=== PATIENT | male | born 1980 | race American Indian/Alaskan Native ===

== ENCOUNTER 2018-12-09 00:52 | Inpatient (IN) | payer OTHER ==
[2018-12-09 01:49] LABS: Basophils % (Auto) 0.8 % (0.0-1.8); Eosinophils # (Auto) 0.2 K/mm3 (0.0-0.4); Eosinophils % (Auto) 2.8 % (0.0-4.3); Hematocrit 40.2 % (35.5-45.6); Hemoglobin 13.5 gm/dl (11.8-15.2); Lymphocytes # (Auto) 2.9 K/mm3 (1.2-5.4); Lymphocytes % (Auto) 48.8 % (13.4-35.0); Mean Corpuscular HGB Conc 34 % (32-34); Mean Corpuscular Volume 100 fl (84-94); Monocytes # (Auto) 0.3 K/mm3 (0.0-0.8); Monocytes % (Auto) 4.4 % (0.0-7.3); Platelet Count 244 K/mm3 (140-440); Red Blood Count 4.02 M/mm3 (3.65-5.03); Red Cell Distribution Width 13.6 % (13.2-15.2)
[2018-12-09 02:12] LABS: BUN/Creatinine Ratio 11; Blood Urea Nitrogen 9 mg/dL (9-20); Calcium 8.8 mg/dL (8.4-10.2); Hemolysis Index 18
[2018-12-09] MEDS ORDERED: LASIX IV ONE (06:19)
[2018-12-09 07:03] LABS: INR 1.14 (0.87-1.13); Partial Thromboplastin Time 29.3 Sec. (24.2-36.6)
[2018-12-09 07:10] LABS: Creatine Kinase MB 1.3 ng/mL (0.0-4.0)
[2018-12-09 07:13] LABS: Albumin 3.5 g/dL (3.9-5); Bilirubin,Direct 0.3 mg/dL (0-0.2)
[2018-12-09 07:17] LABS: Bilirubin,Urine NEG (Negative); Blood,Urine NEG (Negative); Color,Urine Straw (Yellow); Protein,Urine <15 mg/dL mg/dL (Negative); Urobilinogen,Urine < 2.0 mg/dL (<2.0); WBC,Urine < 1.0 /HPF (0.0-6.0)
[2018-12-09 07:26] LABS: Amphetamine Screen,Urine PRESUMPTIVE NEGATIVE; Benzodiazepines Screen,Urine PRESUMPTIVE NEGATIVE; Cocaine Screen,Urine PRESUMPTIVE NEGATIVE; Methadone Screen,Urine PRESUMPTIVE NEGATIVE; Opiate Screen,Urine PRESUMPTIVE NEGATIVE
[2018-12-09 07:45] LABS: Cannabinoid Screen,Urine PRESUMPTIVE POSITIVE
--- NOTE | 2018-12-09 09:04 | XRay Report ---
PROCEDURE: XR CHEST ROUTINE 2V TECHNIQUE: Chest, 2 views HISTORY: cough and FERNANDA COMPARISON: None FINDINGS: There is mild cardiomegaly. There is vascular congestion and interstitial pulmonary edema. There is n o pleural effusion thorax. IMPRESSION: Cardiomegaly with vascular congestion and interstitial edema. This document is electronically signed by Missy Levine MD., December 09 2018 09:02:52 AM ET
--- NOTE | 2018-12-09 11:36 | Emergency Department Report ---
ED Shortness of Breath HPI - General Chief Complaint: Dyspnea/Respdistress Stated Complaint: FERNANDA/O2 DROPPING BELOW 90 Time Seen by Provider: 12/09/18 06:17 Source: patient Mode of arrival: Ambulatory Limitations: No Limitations - History of Present Illness Initial Comments: 38-year-old male states that he has been short of breath. Past few weeks. He states that 5-7 days ago he did have substernal chest pain which lasted for several hours. He did not offer this information at triage. He had screening laboratory tests and a chest x-ray obtained prior to my arrival. At no time over the past few weeks please see Medical attention. He now states that he is awakening in the middle night short of breath. He has dyspnea on exertion. He has orthopnea. He is not complaining of chest pain today or for the past several days. MD Complaint: shortness of breath -: week(s) Quality: other (no pain complaint) Improves With: nothing Worsens With: lying flat, exertion Known History Of: other (denies above) Context: other (occasional cough) Associated Symptoms: denies other symptoms Treatments Prior to Arrival: none - Related Data Home Oxygen Therapy: No Allergies Allergy/AdvReac Type Severity Reaction Status Date / Time No Known Allergies Allergy Unverified 12/09/18 01:03 ED Review of Systems ROS: Stated complaint: FERNANDA/O2 DROPPING BELOW 90 Other details as noted in HPI Constitutional: denies: chills, fever Eyes: denies: eye pain, eye discharge, vision change ENT: denies: ear pain, throat pain Respiratory: orthopnea, shortness of breath, SOB with exertion. denies: cough, wheezing Cardiovascular: chest pain (did not refer this further questioning, denied at triage). denies: palpitations Endocrine: no symptoms reported Gastrointestinal: denies: abdominal pain, nausea, diarrhea Genitourinary: denies: urgency, dysuria Musculoskeletal: denies: back pain, joint swelling, arthralgia Skin: denies: rash, lesions Neurological: denies: headache, weakness, paresthesias Psychiatric: denies: anxiety, depression Hematological/Lymphatic: denies: easy bleeding, easy bruising ED Past Medical Hx - Past Medical History Previous Medical History?: No - Surgical History Past Surgical History?: No - Family History Family history: other - Social History Smoking Status: Current Every Day Smoker Substance Use Type: None ED Physical Exam - General Limitations: No Limitations General appearance: alert, in no apparent distress - Head Head exam: Present: atraumatic, normocephalic - Eye Eye exam: Present: normal appearance. Absent: scleral icterus - ENT ENT exam: Present: mucous membranes moist - Neck Neck exam: Present: normal inspection. Absent: tenderness, meningismus - Respiratory Respiratory exam: Present: rhonchi (some mild basilar rhonchi). Absent: respiratory distress - Cardiovascular Cardiovascular Exam: Present: regular rate, normal rhythm, S4. Absent: systolic murmur, diastolic murmur, rubs, gallop - GI/Abdominal GI/Abdominal exam: Present: soft, normal bowel sounds. Absent: distended, ten derness, guarding, rebound, rigid - Rectal Rectal exam: Present: deferred - Extremities Exam Extremities exam: Present: other (pretibial edema) - Back Exam Back exam: Present: normal inspection - Neurological Exam Neurological exam: Present: alert, oriented X3, CN II-XII intact. Absent: motor sensory deficit - Psychiatric Psychiatric exam: Present: normal affect, normal mood - Skin Skin exam: Present: warm, dry, intact, normal color. Absent: rash ED Course Vital Signs 12/09/18 12/09/18 12/09/18 00:59 02:16 03:00 Temperature 98 F 98 F Pulse Rate 109 H 105 H 101 H Respiratory 22 21 21 Rate Blood Pressure 127/94 118/91 Blood Pressure 118/91 [Left] O2 Sat by Pulse 96 95 93 Oximetry 12/09/18 12/09/18 12/09/18 05:00 06:00 10:10 Temperature Pulse Rate 102 H 104 H 87 Respiratory 22 19 18 Rate Blood Pressure 136/103 115/86 Blood Pressure 121/91 [Left] O2 Sat by Pulse 94 97 98 Oximetry - Reevaluation(s) Reevaluation #1: Patient is found to be in no distress. His pulse oximetry was 94% on room air. He is placed on supplemental O2. His chest x-ray was consistent with cardiogenic pulmonary edema. He was given Lasix. He remained entirely stable. He is admitted to the hospitalist service for care and evaluation and I presume cardiology workup and consultation 12/09/18 12:44 ED Medical Decision Making - Lab Data Result diagrams: 12/09/18 01:26 12/09/18 01:30 Laboratory Results - last 24 hr 12/09/18 12/09/18 12/09/18 01:26 01:30 06:41 WBC 6.0 RBC 4.02 Hgb 13.5 Hct 40.2 MCV 100 H MCH 34 H MCHC 34 RDW 13.6 Plt Count 244 Lymph % (Auto) 48.8 H [place] % (Auto) 4.4 Eos % (Auto) 2.8 Baso % (Auto) 0.8 Lymph # 2.9 [place] # 0.3 Eos # 0.2 Baso # 0.0 Seg Neutrophils % 43.2 Seg Neutrophils # 2.6 PT INR APTT Sodium 142 Potassium 4.1 Chloride 107.3 H Carbon Dioxide 22 Anion Gap 17 BUN 9 Creatinine 0.8 Estimated GFR > 60 BUN/Creatinine Ratio 11 Glucose 86 Calcium 8.8 Magnesium Total Bilirubin Direct Bilirubin Indirect Bilirubin AST ALT Alkaline Phosphatase Total Creatine Kinase 119 CK-MB (CK-2) 1.3 CK-MB (CK-2) Rel Index 1.0 NT-Pro-B Natriuret Pep Total Protein Albumin Albumin/Globulin Ratio Urine Color Urine Turbidity Urine pH Ur Specific [place] Urine Protein Urine Glucose (UA) Urine Ketones Urine Blood Urine Nitrite Urine Bilirubin Urine Urobilinogen Ur Leukocyte Esterase Urine WBC (Auto) Urine RBC (Auto) U Epithel Cells (Auto) Urine Opiates Screen Urine Methadone Screen Ur Barbiturates Screen Ur Phencyclidine Scrn Ur Amphetamines Screen U Benzodiazepines Scrn Urine Cocaine Screen U Marijuana (THC) Screen Drugs of Abuse Note 12/09/18 12/09/18 12/09/18 06:41 06:41 06:57 WBC RBC Hgb Hct MCV MCH MCHC RDW Plt Count Lymph % (Auto) [place] % (Auto) Eos % (Auto) Baso % (Auto) Lymph # [place] # Eos # Baso # Seg Neutrophils % Seg Neutrophils # PT 14.3 INR 1.14 H APTT 29.3 Sodium Potassium Chloride Carbon Dioxide Anion Gap BUN Creatinine Estimated GFR BUN/Creatinine Ratio Glucose Calcium Magnesium 1.70 Total Bilirubin 1.10 Direct Bilirubin 0.3 H Indirect Bilirubin 0.8 AST 55 H ALT 34 Alkaline Phosphatase 90 Total Creatine Kinase CK-MB (CK-2) CK-MB (CK-2) Rel Index NT-Pro-B Natriuret Pep 1973 H Total Protein 6.2 L Albumin 3.5 L Albumin/Globulin Ratio 1.3 Urine Color Urine Turbidity Urine pH Ur Specific [place] Urine Protein Urine Glucose (UA) Urine Ketones Urine Blood Urine Nitrite Urine Bilirubin Urine Urobilinogen Ur Leukocyte Esterase Urine WBC (Auto) Urine RBC (Auto) U Epithel Cells (Auto) Urine Opiates Screen Presumptive negative Urine Methadone Screen Presumptive negative Ur Barbiturates Screen Presumptive negative Ur Phencyclidine Scrn Presumptive negative Ur Amphetamines Screen Presumptive negative U Benzodiazepines Scrn Presumptive negative Urine Cocaine Screen Presumptive negative U Marijuana (THC) Screen Presumptive positive Drugs of Abuse Note Disclamer 12/09/18 06:57 WBC RBC Hgb Hct MCV MCH MCHC RDW Plt Count Lymph % (Auto) [place] % (Auto) Eos % (Auto) Baso % (Auto) Lymph # [place] # Eos # Baso # Seg Neutrophils % Seg Neutrophils # PT INR APTT Sodium Potassium Chloride Carbon Dioxide Anion Gap BUN Creatinine Estimated GFR BUN/Creatinine Ratio Glucose Calcium Magnesium Total Bilirubin Direct Bilirubin Indirect Bilirubin AST ALT Alkaline Phosphatase Total Creatine Kinase CK-MB (CK-2) CK-MB (CK-2) Rel Index NT-Pro-B Natriuret Pep Total Protein Albumin Albumin/Globulin Ratio Urine Color Straw Urine Turbidity Clear Urine pH 6.0 Ur Specific [place] 1.009 Urine Protein <15 mg/dl Urine Glucose (UA) Neg Urine Ketones Neg Urine Blood Neg Urine Nitrite Neg Urine Bilirubin Neg Urine Urobilinogen < 2.0 Ur Leukocyte Esterase Neg Urine WBC (Auto) < 1.0 Urine RBC (Auto) 1.0 U Epithel Cells (Auto) < 1.0 Urine Opiates Screen Urine Methadone Screen Ur Barbiturates Screen Ur Phencyclidine Scrn Ur Amphetamines Screen U Benzodiazepines Scrn Urine Cocaine Screen U Marijuana (THC) Screen Drugs of Abuse Note - EKG Data -: EKG Interpreted by Ar EKG shows normal: sinus rhythm, axis, intervals, QRS complexes, ST-T waves Rate: tachycardia - EKG Data Interpretation: LVH (EKG is consistent with LVH left atrial enlargement associated repolarization abnormality. Nonspecific) - Radiology Data Radiology results: report reviewed FINDINGS: There is mild cardiomegaly. There is vascular congestion and interstitial pulmonary edema. There is no pleural effusion thorax. Critical care attestation.: If time is entered above; I have spent that time in minutes in the direct care of this critically ill patient, excluding procedure time. ED Disposition Clinical Impression: Pulmonary edema cardiac cause Disposition: DC-09 OP ADMIT IP TO THIS HOSP Is pt being admited?: Yes Does the pt Need Aspirin: Yes Condition: Stable Instructions: Pulmonary Edema (ED) Referrals: MIKO CLEMENTE MD [Primary Care Provider] - 3-5 Days Time of Disposition: 12:49
--- NOTE | 2018-12-09 12:32 | History and Physical Report ---
History of Present Illness Date of examination: 12/09/18 Date of admission: 12/09/18 12:29 Chief complaint: Shortness of breath History of present illness: 38-year-old male without any major past medical history presented with complaints of shortness of breath for at least last 1 month. He states that he was having worsening symptoms over the last month but initially he thought likely from allergy or common cold. but his symptom continue to get worse and then he was unable to lay flat. His friend then advised him to get checked out with physician but he he decided to wait. Last night he could not breath at all and could not sleep so he decided to come to hospital. his CXR suggestive of pulmonary condition, lab work showed elevated BNP. He is given a dose of Lasix and call for admission for further evaluation and management.. Review of System: Constitutional: no fever, no chills, no weight loss Ears, eyes, nose, mouth and throat: no nasal congestion, no nasal discharge, no sinus pressure, no vision change, no red eye. Neck: No neck pain or rigidity. Cardiovascular: No chest pain, + orthopnea, no palpitations, no leg swelling Respiratory: +shortness of breath, no cough, no congestion, no wheezing Gastrointestinal: no abdominal pain, no nausea, no vomiting Genitourinary : no dysuria, no hematuria Musculoskeletal: no joint swelling or muscle ache Integumentary: no rash, no pruritis Neurological: no parathesias, no numbness, no tingling Endocrine: no cold or heat intolerance, no polyuria or polydipsia Hematologic/Lymphatic: no easy bruising, no easy bleeding, no gland swelling Allergic/Immunologic: no urticaria, no angioedema. Past History Past Medical History: other (history of murmur) Past Surgical History: No surgical history Social history: smoking (1-2 sticks per day). denies: alcohol abuse, IV drug use Family history: diabetes, hypertension Medications and Allergies Allergies Allergy/AdvReac Type Severity Reaction Status Date / Time No Known Allergies Allergy Unverified 12/09/18 01:03 Home Medications Medication Instructions Recorded Confirmed Last Taken Type No Known Home Medications [No 12/09/18 12/09/18 Unknown History Reported Home Medications] Exam - Physical Exam Narrative exam: GENERAL: well-developed -[place] male lying on bed appeared to be in no discomfort. HEENT: Normocephalic. Atraumatic. No conjunctival congestion or icterus. Patient has moist mucous membranes. NECK: Supple. Trachea midline. CHEST/LUNGS: Few crackles auscultated bilaterally, breathing nonlabored. No wheezes or rhonchi. HEART/CARDIOVASCULAR: Regular in rate and rhythm. S1 and S2 positive. ABDOMEN: Abdomen is soft, nontender. Patient has normal bowel sounds. SKIN: There is no rash. Warm and dry. NEURO: No focal motor deficit. Follows command. MUSCULOSKELETAL: No joint effusion or tenderness. EXTRIMITY: No edema, no cyanosis or clubbing. PSYCH: Cooperative. - Constitutional Vitals: Temp Pulse Resp BP Pulse Ox 98 F 87 18 121/91 98 12/09/18 02:16 12/09/18 10:10 12/09/18 10:10 12/09/18 10:10 12/09/18 10:10 Results - Labs CBC & Chem 7: 12/09/18 01:26 12/10/18 12:43 Labs: Abnormal lab results 12/09/18 12/09/18 12/09/18 Range/Units 01:26 01:30 06:41 MCV 100 H (84-94) fl MCH 34 H (28-32) pg Lymph % (Auto) 48.8 H (13.4-35.0) % INR 1.14 H (0.87-1.13) Chloride 107.3 H (98-107) mmol/L Direct Bilirubin (0-0.2) mg/dL AST (5-40) units/L NT-Pro-B Natriuret Pep (0-450) pg/mL Total Protein (6.3-8.2) g/dL Albumin (3.9-5) g/dL 12/09/18 Range/Units 06:41 MCV (84-94) fl MCH (28-32) pg Lymph % (Auto) (13.4-35.0) % INR (0.87-1.13) Chloride (98-107) mmol/L Direct Bilirubin 0.3 H (0-0.2) mg/dL AST 55 H (5-40) units/L NT-Pro-B Natriuret Pep 1973 H (0-450) pg/mL Total Protein 6.2 L (6.3-8.2) g/dL Albumin 3.5 L (3.9-5) g/dL - Imaging and Cardiology Chest x-ray: report reviewed Assessment and Plan Acute shortness of breath - Likely from pulmonary edema underlying cause unknown - likely CHF - Continue low-dose Lasix for now, obtain d-dimer, 2-D echo - Get 1 set of troponin, monitor BP - Supportive care Substance abuse, UDS was positive for marijuana, securities counselor DVT prophylaxis, Lovenox
[2018-12-09] MEDS ORDERED: ASPIRIN PO ONE (12:49)
[2018-12-09] MEDS ORDERED: ASPIRIN ONE (13:15)
[2018-12-09] MEDS ORDERED: TYLENOL PO PRN (15:50)
[2018-12-09] MEDS ORDERED: ZOFRAN IV PRN (15:50)
[2018-12-09] MEDS: LASIX IV SCH (17:51)
[2018-12-09] MEDS: DUONEB *Not for PRN Use IH SCH (20:58)
[2018-12-09] MEDS: LOVENOX SUB-Q SCH (21:03)
[2018-12-09] MEDS: PEPCID PO SCH (21:03)
[2018-12-09] MEDS: COLACE PO SCH (21:03)
[2018-12-10] MEDS: DUONEB *Not for PRN Use IH SCH ×4 (01:47→19:39)
[2018-12-10] MEDS: LASIX IV SCH (05:18)
[2018-12-10] MEDS ORDERED: LASIX IV SCH (10:00)
--- NOTE | 2018-12-10 11:06 | Cat Scan Report ---
CTA CHEST: HISTORY: Short of breath. COMPARISON: Chest x-ray performed 12/09/18. TECHNIQUE: Helical CT in 1.25mm intervals following IV contrast. Pulmonary embolus protocol. Sagittal and coronal reformatted images. Rotational MIP images. FINDINGS: Contrast bolus is satisfactory. No pulmonary embolus is identified. Thyroid gland: Normal. Tracheobronchial tree: Normal. Esophagus: Normal. Heart: Mild cardiomegaly. Pericardium: Small pericardial effusion. Mediastinum: Normal. Lung [place]: Mild congestive changes are identified. No evidence for mass, infiltrate or interstitial lung disease. Pleural Spaces: Trace layering right pleural effusion. Musculoskeletal: Intact. IMPRESSION: No evidence for pulmonary embolus. Mild cardiomegaly with small pericardial effusion, mild vascular congestion and trace right pleural effusion. Consider mild CHF/volume overload.
[2018-12-10 13:46] LABS: BUN/Creatinine Ratio 10; Blood Urea Nitrogen 9 mg/dL (9-20); Calcium 8.7 mg/dL (8.4-10.2); Hemolysis Index 5
[2018-12-10] MEDS ORDERED: K-DUR PO ONE (15:39)
--- NOTE | 2018-12-10 15:54 | Progress Note ---
Assessment and Plan Dyspnea, Acute - Likely from pulmonary edema underlying cause unknown - likely from new onset CHF - Continue low-dose Lasix for now, negative CTa chest, 2-D echo pending - negative troponin, monitor BP - Supportive care Severe hypokalemia, likely from lasix, replete Substance abuse, UDS was positive for marijuana, primary counselor DVT prophylaxis, Lovenox Brief History: 38-year-old male without any major past medical history presented with complaints of shortness of breath for at least last 1 month. his CXR suggestive of pulmonary congestion, lab work showed elevated BNP. He was given a dose of Lasix in the ER and called for admission for further evaluation and management.. CTA negative for PE, 2d echo pending. Consulted cardiology. Subjective Date of service: 12/10/18 Interval history: Patient seen and examined c/o SOB on exertion denies chest pain Objective - Exam Narrative Exam: GENERAL: well-developed -[place] male lying on bed appeared to be in no discomfort. HEENT: Normocephalic. Atraumatic. No conjunctival congestion or icterus. Patient has moist mucous membranes. NECK: Supple. Trachea midline. CHEST/LUNGS: Few crackles auscultated bilaterally, breathing nonlabored. No wheezes or rhonchi. HEART/CARDIOVASCULAR: Regular in rate and rhythm. S1 and S2 positive. ABDOMEN: Abdomen is soft, nontender. Patient has normal bowel sounds. SKIN: There is no rash. Warm and dry. NEURO: No focal motor deficit. Follows command. MUSCULOSKELETAL: No joint effusion or tenderness. EXTRIMITY: No edema, no cyanosis or clubbing. PSYCH: Cooperative. - Constitutional Vitals: Vital Signs - 12hr 12/10/18 12/10/18 12/10/18 04:00 07:30 08:06 Temperature 97.4 F L 97.4 F L Pulse Rate 78 88 Pulse Rate [ Bilateral] Respiratory 18 18 Rate Respiratory Rate [Bilateral ] Blood Pressure 102/72 107/84 O2 Sat by Pulse 97 Oximetry 12/10/18 12/10/18 09:22 09:39 Temperature Pulse Rate Pulse Rate [ 88 75 Bilateral] Respiratory Rate Respiratory 18 18 Rate [Bilateral ] Blood Pressure O2 Sat by Pulse 100 Oximetry - Labs CBC & Chem 7: 12/09/18 01:26 12/10/18 12:43 Labs: Abnormal lab results 06/17/19 Range/Units 12:43 Potassium 2.9 L* D (3.6-5.0) mmol/L Chloride 97.8 L (98-107) mmol/L
[2018-12-10] MEDS: COLACE PO SCH ×2 (16:59→21:24)
[2018-12-10] MEDS: PEPCID PO SCH ×2 (16:59→21:23)
[2018-12-10] MEDS ORDERED: NACL 0.9% 500 ML 500 ML IV SCH (19:50)
[2018-12-10] MEDS ORDERED: NACL 0.9% 500 ML 500 ML ONE (19:52)
[2018-12-10] MEDS: KCL 10MEQ/100ML 10 MEQ/100 ML BAG IV SCH ×2 (20:05→22:14)
[2018-12-10] MEDS: LOVENOX SUB-Q SCH (21:24)
[2018-12-11] MEDS: KCL 10MEQ/100ML 10 MEQ/100 ML BAG IV SCH (00:06)
[2018-12-11] MEDS: DUONEB *Not for PRN Use IH SCH ×4 (01:53→19:25)
[2018-12-11 05:49] LABS: BUN/Creatinine Ratio 14; Blood Urea Nitrogen 11 mg/dL (9-20); Calcium 8.5 mg/dL (8.4-10.2); Hemolysis Index 3
[2018-12-11] MEDS: PERCOCET 5/325 PO PRN ×3 (09:05→21:42)
[2018-12-11] MEDS: LASIX IV SCH ×2 (09:32→10:33)
[2018-12-11] MEDS: PEPCID PO SCH ×2 (10:33→21:43)
[2018-12-11] MEDS: K-DUR PO SCH (10:33)
[2018-12-11] MEDS: COLACE PO SCH ×2 (10:34→21:43)
--- NOTE | 2018-12-11 13:08 | Consultation ---
History of Present Illness Consult date: 12/11/18 Consult reason: congestive heart failure History of present illness: This is a 38 year old male with no prior medical history and has not seen a physician in 3 years. Patient presents with shortness of breath that has progressively worsened over the last few days. He reports associated orthopnea and coughs. Patient denies chest pain, palpitations and pre-syncope. There is no lower extremity edema. Chest x-ray reports cardiomegaly with mild interstitial edema. Further evaluation with an echocardiogram revealed a 4 chamber dilated cardiomyopathy, ejection fraction 10-15%. Cardiology consultation has been requested. Past History Past Medical History: other (history of murmur) Past Surgical History: No surgical history Social history: smoking. denies: alcohol abuse, IV drug use Family history: diabetes, hypertension Medications and Allergies Allergies Allergy/AdvReac Type Severity Reaction Status Date / Time No Known Allergies Allergy Unverified 12/09/18 01:03 Home Medications Medication Instructions Recorded Confirmed Last Taken Type No Known Home Medications [No 12/09/18 12/09/18 Unknown History Reported Home Medications] Active Meds: Active Medications Acetaminophen (Tylenol) 650 mg PO Q4H PRN PRN Reason: Pain MILD(1-3)/Fever >100.5/[facility] Albuterol/Ipratropium (Duoneb *Not For Prn Use*) 1 ampul IH Q6HRT [facility] Last Admin: 12/11/18 09:09 Dose: Not Given Documented by: Docusate Sodium (Colace) 100 mg PO BID [facility] Last Admin: 12/11/18 10:34 Dose: 100 mg Documented by: Enoxaparin Sodium (Lovenox) 40 mg SUB-Q QDAY@2200 [facility] Last Admin: 12/10/18 21:24 Dose: 40 mg Documented by: Famotidine (Pepcid) 10 mg PO BID [facility] Last Admin: 12/11/18 10:33 Dose: 10 mg Documented by: Furosemide (Lasix) 40 mg IV DAILY [facility] Last Admin: 12/11/18 10:33 Dose: 40 mg Documented by: Sodium Chloride (Nacl 0.9% 500 Ml) 500 mls @ 50 mls/hr IV DIRECT [facility] Ondansetron HCl (Zofran) 4 mg IV Q8H PRN PRN Reason: N/V unrelieved by Reglan Oxycodone/Acetaminophen (Percocet 5/325) 1 tab PO Q6H PRN PRN Reason: Pain, Moderate (4-6) Potassium Chloride (K-Dur) 20 meq PO QDAY [facility] Last Admin: 12/11/18 10:33 Dose: 20 meq Documented by: Physical Examination Vital Signs Temp Pulse Resp BP Pulse Ox 98 F 109 H 22 127/94 96 12/09/18 00:59 12/09/18 00:59 12/09/18 00:59 12/09/18 00:59 12/09/18 00:59 General appearance: no acute distress HEENT: Positive: PERRL Neck: Positive: trachea midline Cardiac: Positive: Reg Rate and Rhythm Lungs: Positive: Decreased Breath Sounds Neuro: Positive: Grossly Intact Extremities: Absent: edema Results 12/09/18 01:26 12/11/18 04:43 Comprehensive Metabolic Panel 12/10/18 12/11/18 Range/Units 12:43 04:43 Sodium 142 140 (137-145) mmol/L Potassium 2.9 L* D 3.2 L (3.6-5.0) mmol/L Chloride 97.8 L 101.9 (98-107) mmol/L Carbon Dioxide 27 25 (22-30) mmol/L BUN 9 11 (9-20) mg/dL Creatinine 0.9 0.8 (0.8-1.5) mg/dL Glucose 88 104 H (75-100) mg/dL Calcium 8.7 8.5 (8.4-10.2) mg/dL
--- NOTE | 2018-12-11 17:09 | Progress Note ---
Assessment and Plan Assessment and plan: --New onset congestive heart failure;systolic dysfunction Ejection fraction 15%, continue diuretics, beta blockers, jamar inhibitors, spironolactone Input and output monitoring, fluid restriction, daily weights, low sodium diet Ischemia workup to rule out ischemic cardiomyopathy. Cardiology following, cardiology recommended pulm consult to evaluate for atypical pneumonia, chest x-ray 2 views tomorrow, Pulmonary consulted --Severe dilated cardiomyopathy;per ECHO EF 15% --Hypokalemia; replenish, follow levels Check magnesium --Substance abuse; marijuana Advised to quit recreational drug use --Ongoing tobacco use; smoking cessation advised Nicotine patch as needed --DVT prophylaxis, Lovenox Closely monitor the patient and adjust management as needed Brief History: 38-year-old male without any major past medical history presented with complaints of shortness of breath for at least last 1 month. his CXR suggestive of pulmonary congestion, lab work showed elevated BNP. He was given a dose of Lasix in the ER and called for admission for further evaluation and management.. CTA negative for PE, 2d echo EF 15%. Cardiology following History Interval history: 38-year-old male without any significant past medical history , never seen a physician , not on any medications was admitted to emergency room with worsening shortness of breath of one month duration , patient's workup is consistent with pulmonary congestion on chest x-ray and CTA chest with elevated BNP and echocardiogram revealed dilated cardiomyopathy with ejection fraction of 15% , cardiology following Patient feels slightly better today, denies chest pain Shortness of breath slightly improved Alert awake oriented 3 Vital signs noted Hospitalist Physical - Constitutional Vitals: Temp Pulse Resp BP Pulse Ox 99.1 F 99 H 16 108/70 100 12/11/18 08:30 12/11/18 10:00 12/11/18 08:30 12/11/18 08:30 12/11/18 14:32 General appearance: Present: no acute distress, well-nourished - EENT Eyes: Present: PERRL, EOM intact - Neck Neck: Present: supple, normal ROM - Respiratory Respiratory effort: normal Respiratory: bilateral: diminished, rales, negative: rhonchi, wheezing - Cardiovascular Rhythm: regular Heart Sounds: Present: S1 & S2 - Extremities Extremities: no ischemia, No edema - Abdominal General gastrointestinal: soft, non-tender, non-distended, normal bowel sounds - Integumentary Integumentary: Present: clear, warm - Psychiatric Psychiatric: appropriate mood/affect, cooperative - Neurologic Neurologic: moves all extremities Results - Labs CBC & Chem 7: 12/09/18 01:26 12/11/18 04:43 Labs: Laboratory Last Values WBC 6.0 K/mm3 (4.5-11.0) 12/09/18 01:26 RBC 4.02 M/mm3 (3.65-5.03) 12/09/18 01:26 Hgb 13.5 gm/dl (11.8-15.2) 12/09/18 01:26 Hct 40.2 % (35.5-45.6) 12/09/18 01:26 MCV 100 fl (84-94) H 12/09/18 01:26 MCH 34 pg (28-32) H 12/09/18 01:26 MCHC 34 % (32-34) 12/09/18 01:26 RDW 13.6 % (13.2-15.2) 12/09/18 01:26 Plt Count 244 K/mm3 (140-440) 12/09/18 01:26 Lymph % (Auto) 48.8 % (13.4-35.0) H 12/09/18 01:26 [place] % (Auto) 4.4 % (0.0-7.3) 12/09/18 01:26 Eos % (Auto) 2.8 % (0.0-4.3) 12/09/18 01:26 Baso % (Auto) 0.8 % (0.0-1.8) 12/09/18 01:26 Lymph # 2.9 K/mm3 (1.2-5.4) 12/09/18 01:26 [place] # 0.3 K/mm3 (0.0-0.8) 12/09/18 01:26 Eos # 0.2 K/mm3 (0.0-0.4) 12/09/18 01:26 Baso # 0.0 K/mm3 (0.0-0.1) 12/09/18 01:26 Seg Neutrophils % 43.2 % (40.0-70.0) 12/09/18 01:26 Seg Neutrophils # 2.6 K/mm3 (1.8-7.7) 12/09/18 01:26 PT 14.3 Sec. (12.2-14.9) 12/09/18 06:41 INR 1.14 (0.87-1.13) H 12/09/18 06:41 APTT 29.3 Sec. (24.2-36.6) 12/09/18 06:41 496.23 ng/mlDDU (0-234) H 12/09/18 06:41 Sodium 140 mmol/L (137-145) 12/11/18 04:43 Potassium 3.2 mmol/L (3.6-5.0) L 12/11/18 04:43 Chloride 101.9 mmol/L (98-107) 12/11/18 04:43 Carbon Dioxide 25 mmol/L (22-30) 12/11/18 04:43 16 mmol/L 12/11/18 04:43 BUN 11 mg/dL (9-20) 12/11/18 04:43 0.8 mg/dL (0.8-1.5) 12/11/18 04:43 Estimated GFR > 60 ml/min 12/11/18 04:43 14 % 12/11/18 04:43 Glucose 104 mg/dL (75-100) H 12/11/18 04:43 Calcium 8.5 mg/dL (8.4-10.2) 12/11/18 04:43 Magnesium 1.70 mg/dL (1.7-2.3) 12/09/18 06:41 1.10 mg/dL (0.1-1.2) 12/09/18 06:41 0.3 mg/dL (0-0.2) H 12/09/18 06:41 0.8 mg/dL 12/09/18 06:41 AST 55 units/L (5-40) H 12/09/18 06:41 ALT 34 units/L (7-56) 12/09/18 06:41 90 units/L (35-129) 12/09/18 06:41 119 units/L (55-170) 12/09/18 06:41 CK-MB (CK-2) 1.3 ng/mL (0.0-4.0) 12/09/18 06:41 CK-MB (CK-2) Rel Index 1.0 (0-4) 12/09/18 06:41 < 0.010 ng/mL (0.00-0.029) 12/09/18 06:41 NT-Pro-B Natriuret Pep 1973 pg/mL (0-450) H 12/09/18 06:41 6.2 g/dL (6.3-8.2) L 12/09/18 06:41 3.5 g/dL (3.9-5) L 12/09/18 06:41 1.3 % 12/09/18 06:41 Straw (Yellow) 12/09/18 06:57 Clear (Clear) 12/09/18 06:57 6.0 (5.0-7.0) 12/09/18 06:57 Ur Specific [place] 1.009 (1.003-1.030) 12/09/18 06:57 <15 mg/dl mg/dL (Negative) 12/09/18 06:57 Neg mg/dL (Negative) 12/09/18 06:57 Neg mg/dL (Negative) 12/09/18 06:57 Neg (Negative) 12/09/18 06:57 Neg (Negative) 12/09/18 06:57 Neg (Negative) 12/09/18 06:57 < 2.0 mg/dL (<2.0) 12/09/18 06:57 Ur Leukocyte Esterase Neg (Negative) 12/09/18 06:57 < 1.0 /HPF (0.0-6.0) 12/09/18 06:57 1.0 /HPF (0.0-6.0) 12/09/18 06:57 U Epithel Cells (Auto) < 1.0 /HPF (0-13.0) 12/09/18 06:57 Presumptive negative 12/09/18 06:57 Presumptive negative 12/09/18 06:57 Ur Barbiturates Screen Presumptive negative 12/09/18 06:57 Ur Phencyclidine Scrn Presumptive negative 12/09/18 06:57 Ur Amphetamines Screen Presumptive negative 12/09/18 06:57 U Benzodiazepines Scrn Presumptive negative 12/09/18 06:57 Presumptive negative 12/09/18 06:57 U Marijuana (THC) Screen Presumptive positive 12/09/18 06:57 Disclamer 12/09/18 06:57 Active Medications - Current Medications Current Medications: Generic Name Dose Route Start Last Admin Trade Name Freq PRN Reason Stop Dose Admin Acetaminophen 650 mg 12/09/18 15:50 Tylenol PO Q4H PRN Pain MILD(1-3)/Fever >100.5/AL[place]ANDER Albuterol/Ipratropium 1 ampul 12/09/18 20:00 12/11/18 14:32 Duoneb *Not For Prn Use* IH Not Given Q6HRT [facility] Aspirin 81 mg 12/11/18 14:00 Halfprin Ec PO QDAY ALLA Carvedilol 3.125 mg 12/11/18 14:00 Coreg PO BID ALLA Docusate Sodium 100 mg 12/09/18 22:00 12/11/18 10:34 Colace PO 100 mg BID ALLA Administration Enoxaparin Sodium 40 mg 12/09/18 22:00 12/10/18 21:24 Lovenox SUB-Q 40 mg QDAY@2200 ALLA Administration Famotidine 10 mg 12/09/18 22:00 12/11/18 10:33 Pepcid PO 10 mg BID ALLA Administration Furosemide 40 mg 12/11/18 10:00 12/11/18 10:33 Lasix IV 40 mg DAILY [facility] Administration Sodium Chloride 500 mls @ 50 mls/hr 12/10/18 19:50 Nacl 0.9% 500 Ml IV DIRECT ALLA Lisinopril 2.5 mg 12/11/18 14:00 Zestril PO QDAY ALLA Ondansetron HCl 4 mg 12/09/18 15:50 Zofran IV Q8H PRN N/V unrelieved by Grisel Oxycodone/Acetaminophen 1 tab 12/09/18 15:50 Percocet 5/325 PO Q6H PRN Pain, Moderate (4-6) Potassium Chloride 20 meq 12/11/18 10:00 12/11/18 10:33 K-Dur PO 20 meq QDAY ALLA Administration Spironolactone 25 mg 12/12/18 10:00 Aldactone PO QDAY ALLA
[2018-12-11] MEDS: HALFPRIN EC PO SCH (18:30)
[2018-12-11] MEDS: ZESTRIL PO SCH (18:31)
[2018-12-11] MEDS: COREG PO SCH ×2 (18:32→21:44)
[2018-12-11] MEDS: LOVENOX SUB-Q SCH (21:44)
[2018-12-12] MEDS: DUONEB *Not for PRN Use IH SCH ×4 (02:53→21:01)
[2018-12-12 06:50] LABS: BUN/Creatinine Ratio 13; Blood Urea Nitrogen 12 mg/dL (9-20); Calcium 8.4 mg/dL (8.4-10.2); Hemolysis Index 0
--- NOTE | 2018-12-12 08:00 | XRay Report ---
Chest 2 views: Compared to 12/09/18. History: CHF. Findings: Cardiomegaly. Trachea is midline. No consolidation, pneumothorax or pleural effusion. At present no definite congestion noted . Normal CP angles. Impression: Cardiomegaly. No evidence of acute lung changes.
[2018-12-12] MEDS: PEPCID PO SCH ×2 (09:30→21:34)
[2018-12-12] MEDS: LASIX IV SCH (09:30)
[2018-12-12] MEDS: K-DUR PO SCH (09:30)
[2018-12-12] MEDS: HALFPRIN EC PO SCH (09:30)
[2018-12-12] MEDS: COLACE PO SCH ×2 (09:30→21:35)
--- NOTE | 2018-12-12 10:15 | Progress Note ---
<TRU TRUJILLO - Last Filed: 12/12/18 10:12> Assessment and Plan Acute systolic heart failure echocardiogram revealed a severely dilated left ventricle, with left ventricular ejection fraction approximately 15%. Recommendations: Medical therapy for systolic failure, including diuretics, beta blockers, afterload agents, spironolactone, aspirin as tolerated. Further cardiac workup depends on clinical course. Subjective Date of service: 12/12/18 Interval history: Patient appears well. He reports his breathing has improved. Objective Vital Signs Temp Pulse Pulse Pulse Resp Resp BP 12/12/18 09:01 91 H 18 12/12/18 08:53 87 12/12/18 08:46 12/12/18 08:45 87 18 12/12/18 08:00 18 L 18 12/12/18 07:52 97.6 F 18 101/77 12/12/18 07:48 90 101/77 12/12/18 03:34 98.0 F 83 18 91/65 12/11/18 23:38 98.0 F 95 H 18 96/71 12/11/18 23:06 98.0 F 94 H 18 83/54 12/11/18 21:44 88 158/68 12/11/18 19:27 12/11/18 19:25 96 H 20 12/11/18 19:24 98.0 F 98 H 18 106/75 12/11/18 17:40 98.1 F 99 H 16 101/68 12/11/18 14:32 Pulse Ox 12/12/18 09:01 12/12/18 08:53 12/12/18 08:46 98 12/12/18 08:45 12/12/18 08:00 12/12/18 07:52 12/12/18 07:48 100 12/12/18 03:34 98 12/11/18 23:38 100 12/11/18 23:06 100 12/11/18 21:44 12/11/18 19:27 96 12/11/18 19:25 12/11/18 19:24 100 12/11/18 17:40 99 12/11/18 14:32 100 - Physical Examination General: No Apparent Distress HEENT: Positive: PERRL Neck: Positive: trachea midline Cardiac: Positive: Reg Rate and Rhythm Lungs: Positive: Decreased Breath Sounds Neuro: Positive: Grossly Intact Extremities: Absent: edema - Labs and Meds Comprehensive Metabolic Panel 12/11/18 12/12/18 Range/Units 17:16 05:16 Sodium 140 (137-145) mmol/L Potassium 4.2 D 3.8 (3.6-5.0) mmol/L Chloride 102.7 (98-107) mmol/L Carbon Dioxide 24 (22-30) mmol/L BUN 12 (9-20) mg/dL Creatinine 0.9 (0.8-1.5) mg/dL Glucose 97 (75-100) mg/dL Calcium 8.4 (8.4-10.2) mg/dL <DARIO INMAN - Last Filed: 12/12/18 12:34> Assessment and Plan I seen and evaluated the patient myself and is a with the assessment and plan. Patient has presented to the hospital with acute on chronic systolic heart failure. The patient has a severely dilated left ventricle with a left ventricular ejection fraction of approximately 15%. We'll continue gentle diuresis as tolerated. Continue to maximize medical therapy with beta vish spironolactone and AMBER inhibitor. Patient will require right left heart catheterization for evaluation when medically optimized. Objective Vital Signs Temp Pulse Pulse Pulse Resp Resp BP 12/12/18 09:01 91 H 18 12/12/18 08:53 87 12/12/18 08:46 12/12/18 08:45 87 18 12/12/18 08:00 18 L 18 12/12/18 07:52 97.6 F 18 101/77 12/12/18 07:48 90 101/77 12/12/18 03:34 98.0 F 83 18 91/65 12/11/18 23:38 98.0 F 95 H 18 96/71 12/11/18 23:06 98.0 F 94 H 18 83/54 12/11/18 21:44 88 158/68 12/11/18 19:27 12/11/18 19:25 96 H 20 12/11/18 19:24 98.0 F 98 H 18 106/75 12/11/18 17:40 98.1 F 99 H 16 101/68 12/11/18 14:32 Pulse Ox 12/12/18 09:01 12/12/18 08:53 12/12/18 08:46 98 12/12/18 08:45 12/12/18 08:00 12/12/18 07:52 12/12/18 07:48 100 12/12/18 03:34 98 12/11/18 23:38 100 12/11/18 23:06 100 12/11/18 21:44 12/11/18 19:27 96 12/11/18 19:25 12/11/18 19:24 100 12/11/18 17:40 99 12/11/18 14:32 100 - Labs and Meds Comprehensive Metabolic Panel 12/11/18 12/12/18 Range/Units 17:16 05:16 Sodium 140 (137-145) mmol/L Potassium 4.2 D 3.8 (3.6-5.0) mmol/L Chloride 102.7 (98-107) mmol/L Carbon Dioxide 24 (22-30) mmol/L BUN 12 (9-20) mg/dL Creatinine 0.9 (0.8-1.5) mg/dL Glucose 97 (75-100) mg/dL Calcium 8.4 (8.4-10.2) mg/dL
[2018-12-12] MEDS: ALDACTONE PO SCH (11:08)
[2018-12-12] MEDS: COREG PO SCH ×2 (11:09→21:33)
[2018-12-12] MEDS: ZESTRIL PO SCH (11:09)
--- NOTE | 2018-12-12 12:50 | Consultation ---
History of Present Illness Consult date: 12/12/18 Requesting physician: VALERIA FRASER Reason for consult: abnormal CXR/CT History of present illness: 38 y/o male admitted with shortness of breath. patient was found to have mild pulmonary edema, elevated BNP and EF of 15%. Patient does drink ETOH and smoke cigarettes. Cardiology was concerned for atypical pneumonia and asked for pulmonary evaluation. Patient states that he has smoked cigarettes "forever". He has never been admitted for any breathing issues. Has never seen a lung doctor before. The remainder of the review is positive for cough that is worse at night when trying to lie down. He also has orthopnea. Per the patient he has severe acid reflux and his cough is worse at night. Past History Past Medical History: other (history of murmur) Past Surgical History: No surgical history Social history: smoking. denies: alcohol abuse, IV drug use Family history: diabetes, hypertension Medications and Allergies Allergies Allergy/AdvReac Type Severity Reaction Status Date / Time No Known Allergies Allergy Unverified 12/09/18 01:03 Home Medications Medication Instructions Recorded Confirmed Last Taken Type No Known Home Medications [No 12/09/18 12/09/18 Unknown History Reported Home Medications] Active Meds: Active Medications Acetaminophen (Tylenol) 650 mg PO Q4H PRN PRN Reason: Pain MILD(1-3)/Fever >100.5/[place]ER Albuterol/Ipratropium (Duoneb *Not For Prn Use*) 1 ampul IH Q6HRT [facility] Last Admin: 12/12/18 08:45 Dose: 1 ampul Documented by: Aspirin (Halfprin Ec) 81 mg PO QDAY [facility] Last Admin: 12/12/18 09:30 Dose: 81 mg Documented by: Carvedilol (Coreg) 3.125 mg PO BID [facility] Last Admin: 12/12/18 11:09 Dose: Not Given Documented by: Docusate Sodium (Colace) 100 mg PO BID [facility] Last Admin: 12/12/18 09:30 Dose: 100 mg Documented by: Enoxaparin Sodium (Lovenox) 40 mg SUB-Q QDAY@2200 [facility] Last Admin: 12/11/18 21:44 Dose: 40 mg Documented by: Famotidine (Pepcid) 10 mg PO BID [facility] Last Admin: 12/12/18 09:30 Dose: 10 mg Documented by: Furosemide (Lasix) 40 mg IV DAILY [facility] Last Admin: 12/12/18 09:30 Dose: 40 mg Documented by: Sodium Chloride (Nacl 0.9% 500 Ml) 500 mls @ 50 mls/hr IV DIRECT [facility] Lisinopril (Zestril) 2.5 mg PO QDAY [facility] Last Admin: 12/12/18 11:09 Dose: Not Given Documented by: Ondansetron HCl (Zofran) 4 mg IV Q8H PRN PRN Reason: N/V unrelieved by Reglan Oxycodone/Acetaminophen (Percocet 5/325) 1 tab PO Q6H PRN PRN Reason: Pain, Moderate (4-6) Last Admin: 12/11/18 21:42 Dose: 1 tab Documented by: Potassium Chloride (K-Dur) 20 meq PO QDAY [facility] Last Admin: 12/12/18 09:30 Dose: 20 meq Documented by: Spironolactone (Aldactone) 25 mg PO QDAY [facility] Last Admin: 12/12/18 11:08 Dose: 25 mg Documented by: Review of Systems All systems: negative Physical Examination Vital signs: Vital Signs Temp Pulse Resp BP Pulse Ox 98 F 109 H 22 127/94 96 12/09/18 00:59 12/09/18 00:59 12/09/18 00:59 12/09/18 00:59 12/09/18 00:59 General appearance: no acute distress, alert Eyes: non-icteric ENT: oropharynx moist Neck: supple Effort: normal Ascultation: Bilateral: clear Percussion: Left: not dull Tactile fremitus: Left: normal Cardiovascular: regular rate and rhythm Gastrointestinal: normoactive bowel sounds, soft, non-tender Extremities: no cyanosis, no edema, pink and warm, pulses normal Results - Laboratory Findings CBC and BMP: 12/09/18 01:26 12/12/18 05:16 PT/INR, D-dimer PT 14.3 Sec. (12.2-14.9) 12/09/18 06:41 INR 1.14 (0.87-1.13) H 12/09/18 06:41 496.23 ng/mlDDU (0-234) H 12/09/18 06:41 Abnormal lab findings: Abnormal Labs 12/09/18 12/09/18 12/09/18 01:26 01:30 06:41 MCV 100 H MCH 34 H Lymph % (Auto) 48.8 H INR 1.14 H D-Dimer Potassium Chloride 107.3 H Glucose Direct Bilirubin AST NT-Pro-B Natriuret Pep Total Protein Albumin 12/09/18 12/09/18 12/10/18 06:41 06:41 12:43 MCV MCH Lymph % (Auto) INR D-Dimer 496.23 H Potassium 2.9 L* D Chloride 97.8 L Glucose Direct Bilirubin 0.3 H AST 55 H NT-Pro-B Natriuret Pep 1973 H Total Protein 6.2 L Albumin 3.5 L 12/11/18 04:43 MCV MCH Lymph % (Auto) INR D-Dimer Potassium 3.2 L Chloride Glucose 104 H Direct Bilirubin AST NT-Pro-B Natriuret Pep Total Protein Albumin - Diagnostic Findings Chest x-ray: image reviewed (Cardiomegaly) CT scan - chest: image reviewed (cardiomegaly with GGO) Assessment and Plan 38 y/o male with newly diagnosed cardiomegaly and systolic heart failure with concern for atypical pneumonia. 1. Patient has improved with diuretic therapy. He has had no fever, no sputum that is discolored and no other symptoms to suggest that his dyspnea is related to anything else outside of CHF. He does smoke and may have component of COPD but has no structural lung disease seen on CT of chest. Will have patient obtain PFT's either here at the hospital or the office to evaluate for COPD. Smoking cessation encouraged. Will sign off. Call if any questions.
--- NOTE | 2018-12-12 12:57 | Progress Note ---
Assessment and Plan Assessment and plan: --New onset congestive heart failure;systolic dysfunction Ejection fraction 15%, continue diuretics, beta blockers, jamar inhibitors, spironolactone Input and output monitoring, fluid restriction, daily weights, low sodium diet Ischemia workup to rule out ischemic cardiomyopathy. --cardiology recommended pulm consult to evaluate for atypical pneumonia, chest x-ray 2 views tomorrow, follow-up pulmonary evaluation and recommendations --Severe dilated cardiomyopathy;per ECHO EF 15% Continue anti-failure medications --Hypokalemia; replenish, follow levels Check magnesium --Substance abuse; marijuana Advised to quit recreational drug use --Ongoing tobacco use; smoking cessation advised Nicotine patch as needed --DVT prophylaxis, Lovenox Closely monitor the patient and adjust management as needed Consults Recommendations noted and appreciated History Interval history: Patient seen and examined and medical records reviewed Patient feels better after diuretic therapy and denies chest pain or shortness of breath Alert Awake oriented 3 Vital signs reviewed Hospitalist Physical - Constitutional Vitals: Temp Pulse Resp BP Pulse Ox 97.6 F 91 H 18 101/77 98 12/12/18 07:52 12/12/18 09:01 12/12/18 09:01 12/12/18 07:52 12/12/18 08:46 General appearance: Present: no acute distress, well-nourished - EENT Eyes: Present: PERRL, EOM intact - Neck Neck: Present: supple, normal ROM - Respiratory Respiratory effort: normal Respiratory: bilateral: diminished, rales, negative: rhonchi, wheezing - Cardiovascular Rhythm: regular Heart Sounds: Present: S1 & S2 - Extremities Extremities: no ischemia, No edema - Abdominal General gastrointestinal: soft, non-tender, non-distended, normal bowel sounds - Integumentary Integumentary: Present: clear, warm - Psychiatric Psychiatric: appropriate mood/affect, cooperative - Neurologic Neurologic: CNII-XII intact, moves all extremities Results - Labs CBC & Chem 7: 12/09/18 01:26 12/12/18 05:16 Labs: Laboratory Last Values WBC 6.0 K/mm3 (4.5-11.0) 12/09/18 01:26 RBC 4.02 M/mm3 (3.65-5.03) 12/09/18 01:26 Hgb 13.5 gm/dl (11.8-15.2) 12/09/18 01:26 Hct 40.2 % (35.5-45.6) 12/09/18 01:26 MCV 100 fl (84-94) H 12/09/18 01:26 MCH 34 pg (28-32) H 12/09/18 01:26 MCHC 34 % (32-34) 12/09/18 01:26 RDW 13.6 % (13.2-15.2) 12/09/18 01:26 Plt Count 244 K/mm3 (140-440) 12/09/18 01:26 Lymph % (Auto) 48.8 % (13.4-35.0) H 12/09/18 01:26 [place] % (Auto) 4.4 % (0.0-7.3) 12/09/18 01:26 Eos % (Auto) 2.8 % (0.0-4.3) 12/09/18 01:26 Baso % (Auto) 0.8 % (0.0-1.8) 12/09/18 01:26 Lymph # 2.9 K/mm3 (1.2-5.4) 12/09/18 01:26 [place] # 0.3 K/mm3 (0.0-0.8) 12/09/18 01:26 Eos # 0.2 K/mm3 (0.0-0.4) 12/09/18 01:26 Baso # 0.0 K/mm3 (0.0-0.1) 12/09/18 01:26 Seg Neutrophils % 43.2 % (40.0-70.0) 12/09/18 01:26 Seg Neutrophils # 2.6 K/mm3 (1.8-7.7) 12/09/18 01:26 PT 14.3 Sec. (12.2-14.9) 12/09/18 06:41 INR 1.14 (0.87-1.13) H 12/09/18 06:41 APTT 29.3 Sec. (24.2-36.6) 12/09/18 06:41 496.23 ng/mlDDU (0-234) H 12/09/18 06:41 Sodium 140 mmol/L (137-145) 12/12/18 05:16 Potassium 3.8 mmol/L (3.6-5.0) 12/12/18 05:16 Chloride 102.7 mmol/L (98-107) 12/12/18 05:16 Carbon Dioxide 24 mmol/L (22-30) 12/12/18 05:16 17 mmol/L 12/12/18 05:16 BUN 12 mg/dL (9-20) 12/12/18 05:16 0.9 mg/dL (0.8-1.5) 12/12/18 05:16 Estimated GFR > 60 ml/min 12/12/18 05:16 13 % 12/12/18 05:16 Glucose 97 mg/dL (75-100) 12/12/18 05:16 Calcium 8.4 mg/dL (8.4-10.2) 12/12/18 05:16 Magnesium 2.00 mg/dL (1.7-2.3) 12/12/18 05:16 1.10 mg/dL (0.1-1.2) 12/09/18 06:41 0.3 mg/dL (0-0.2) H 12/09/18 06:41 0.8 mg/dL 12/09/18 06:41 AST 55 units/L (5-40) H 12/09/18 06:41 ALT 34 units/L (7-56) 12/09/18 06:41 90 units/L (35-129) 12/09/18 06:41 119 units/L (55-170) 12/09/18 06:41 CK-MB (CK-2) 1.3 ng/mL (0.0-4.0) 12/09/18 06:41 CK-MB (CK-2) Rel Index 1.0 (0-4) 12/09/18 06:41 < 0.010 ng/mL (0.00-0.029) 12/09/18 06:41 NT-Pro-B Natriuret Pep 1973 pg/mL (0-450) H 12/09/18 06:41 6.2 g/dL (6.3-8.2) L 12/09/18 06:41 3.5 g/dL (3.9-5) L 12/09/18 06:41 1.3 % 12/09/18 06:41 Straw (Yellow) 12/09/18 06:57 Clear (Clear) 12/09/18 06:57 6.0 (5.0-7.0) 12/09/18 06:57 Ur Specific [place] 1.009 (1.003-1.030) 12/09/18 06:57 <15 mg/dl mg/dL (Negative) 12/09/18 06:57 Neg mg/dL (Negative) 12/09/18 06:57 Neg mg/dL (Negative) 12/09/18 06:57 Neg (Negative) 12/09/18 06:57 Neg (Negative) 12/09/18 06:57 Neg (Negative) 12/09/18 06:57 < 2.0 mg/dL (<2.0) 12/09/18 06:57 Ur Leukocyte Esterase Neg (Negative) 12/09/18 06:57 < 1.0 /HPF (0.0-6.0) 12/09/18 06:57 1.0 /HPF (0.0-6.0) 12/09/18 06:57 U Epithel Cells (Auto) < 1.0 /HPF (0-13.0) 12/09/18 06:57 Presumptive negative 12/09/18 06:57 Presumptive negative 12/09/18 06:57 Ur Barbiturates Screen Presumptive negative 12/09/18 06:57 Ur Phencyclidine Scrn Presumptive negative 12/09/18 06:57 Ur Amphetamines Screen Presumptive negative 12/09/18 06:57 U Benzodiazepines Scrn Presumptive negative 12/09/18 06:57 Presumptive negative 12/09/18 06:57 U Marijuana (THC) Screen Presumptive positive 12/09/18 06:57 Disclamer 12/09/18 06:57 Active Medications - Current Medications Current Medications: Generic Name Dose Route Start Last Admin Trade Name Freq PRN Reason Stop Dose Admin Acetaminophen 650 mg 12/09/18 15:50 Tylenol PO Q4H PRN Pain MILD(1-3)/Fever >100.5/[place]ER Albuterol/Ipratropium 1 ampul 12/09/18 20:00 12/12/18 08:45 Duoneb *Not For Prn Use* IH 1 ampul Q6HRT ALLA Administration Aspirin 81 mg 12/11/18 14:00 12/12/18 09:30 Halfprin Ec PO 81 mg QDAY ALLA Administration Carvedilol 3.125 mg 12/11/18 14:00 12/12/18 11:09 Coreg PO Not Given BID ALLA Docusate Sodium 100 mg 12/09/18 22:00 12/12/18 09:30 Colace PO 100 mg BID ALLA Administration Enoxaparin Sodium 40 mg 12/09/18 22:00 12/11/18 21:44 Lovenox SUB-Q 40 mg QDAY@2200 ALLA Administration Famotidine 10 mg 12/09/18 22:00 12/12/18 09:30 Pepcid PO 10 mg BID ALLA Administration Furosemide 40 mg 12/11/18 10:00 12/12/18 09:30 Lasix IV 40 mg DAILY ALLA Administration Sodium Chloride 500 mls @ 50 mls/hr 12/10/18 19:50 Nacl 0.9% 500 Ml IV DIRECT ALLA Lisinopril 2.5 mg 12/11/18 14:00 12/12/18 11:09 Zestril PO Not Given QDAY [facility] Ondansetron HCl 4 mg 12/09/18 15:50 Zofran IV Q8H PRN N/V unrelieved by Grisel Oxycodone/Acetaminophen 1 tab 12/09/18 15:50 12/11/18 21:42 Percocet 5/325 PO 1 tab Q6H PRN Administration Pain, Moderate (4-6) Potassium Chloride 20 meq 12/11/18 10:00 12/12/18 09:30 K-Dur PO 20 meq QDAY ALLA Administration Spironolactone 25 mg 12/12/18 10:00 12/12/18 11:08 Aldactone PO 25 mg QDAY ALLA Administration
[2018-12-12] MEDS: LOVENOX SUB-Q SCH (21:35)
[2018-12-13] MEDS: DUONEB *Not for PRN Use IH SCH ×4 (02:26→20:52)
[2018-12-13 05:41] LABS: INR 1.05 (0.87-1.13)
[2018-12-13 05:57] LABS: BUN/Creatinine Ratio 16; Blood Urea Nitrogen 14 mg/dL (9-20); Calcium 9.2 mg/dL (8.4-10.2); Hemolysis Index 5
[2018-12-13] MEDS: PERCOCET 5/325 PO PRN (06:48)
[2018-12-13] MEDS ORDERED: NACL 0.9% 500 ML 500 ML IV SCH (07:00)
--- NOTE | 2018-12-13 10:46 | Progress Note ---
Assessment and Plan Acute systolic heart failure echocardiogram revealed a severely dilated left ventricle, with left ventricular ejection fraction approximately 15%. Headaches Recommendations: Continue medical therapy for systolic failure, including diuretics, beta blockers, afterload agents, spironolactone, aspirin as tolerated. We will plan for cardiac cath tomorrow morning. Subjective Date of service: 12/13/18 Interval history: Cardiac cath postponed. Patient complains of headaches and right eye pain. Objective Vital Signs Temp Pulse Pulse Resp Resp BP Pulse Ox 12/13/18 08:52 101 H 12/13/18 08:00 18 12/13/18 07:27 97.7 F 94 H 18 99/77 100 12/13/18 06:48 20 12/13/18 04:19 98.0 F 103 H 18 86/63 97 12/12/18 23:30 98.3 F 97 H 18 95/61 99 12/12/18 21:33 99/73 12/12/18 21:12 97 H 18 12/12/18 21:03 100 12/12/18 21:01 101 H 18 12/12/18 20:37 100 H 12/12/18 19:10 98.2 F 98 H 18 99/73 100 12/12/18 14:26 76 18 12/12/18 14:11 79 18 12/12/18 13:07 97.5 F L 100 H 18 91/72 100 - Physical Examination General: No Apparent Distress HEENT: Positive: PERRL Neck: Positive: trachea midline Cardiac: Positive: Reg Rate and Rhythm Lungs: Positive: Decreased Breath Sounds Neuro: Positive: Grossly Intact Extremities: Absent: edema - Labs and Meds Coagulation 12/13/18 Range/Units 04:45 PT 13.4 (12.2-14.9) Sec. INR 1.05 (0.87-1.13) Comprehensive Metabolic Panel 12/13/18 Range/Units 04:45 Sodium 140 (137-145) mmol/L Potassium 4.3 (3.6-5.0) mmol/L Chloride 102.4 (98-107) mmol/L Carbon Dioxide 24 (22-30) mmol/L BUN 14 (9-20) mg/dL Creatinine 0.9 (0.8-1.5) mg/dL Glucose 100 (75-100) mg/dL Calcium 9.2 (8.4-10.2) mg/dL
[2018-12-13] MEDS: ALDACTONE PO SCH (10:47)
[2018-12-13] MEDS: COLACE PO SCH ×2 (10:47→21:54)
[2018-12-13] MEDS: LASIX IV SCH (10:47)
[2018-12-13] MEDS: PEPCID PO SCH ×2 (10:47→21:54)
[2018-12-13] MEDS: COREG PO SCH ×2 (10:47→21:54)
[2018-12-13] MEDS: K-DUR PO SCH (10:47)
[2018-12-13] MEDS: HALFPRIN EC PO SCH (10:47)
[2018-12-13] MEDS: ZESTRIL PO SCH (10:48)
--- NOTE | 2018-12-13 16:41 | Progress Note ---
Assessment and Plan Assessment and plan: --Heart cath tomorrow per cardiology to r/o Ischemic cardiomyopathy --New onset congestive heart failure;systolic dysfunction Ejection fraction 15%, continue diuretics, beta blockers, jamar inhibitors, spi ronolactone Input and output monitoring, fluid restriction, daily weights, low sodium diet Ischemia workup to rule out ischemic cardiomyopathy. --cardiology recommended pulm consult to evaluate for atypical pneumonia, chest x-ray 2 views no evidence of pneumonia, pulmonary evaluated, no pneumonia --Severe dilated cardiomyopathy;per ECHO EF 15% Continue anti-failure medications --Hypokalemia; replenish, follow levels Check magnesium --Substance abuse; marijuana Advised to quit recreational drug use --Ongoing tobacco use; smoking cessation advised Nicotine patch as needed --DVT prophylaxis, Lovenox Closely monitor the patient and adjust management as needed Consults Recommendations noted and appreciated History Interval history: Patient seen and examined medical records reviewed. No new events reported, denies chest pain or shortness of breath Vital Signs noted Hospitalist Physical - Constitutional Vitals: Temp Pulse Resp BP Pulse Ox 97.5 F L 100 H 18 109/68 100 12/13/18 11:53 12/13/18 14:26 12/13/18 14:26 12/13/18 11:53 12/13/18 14:10 General appearance: Present: no acute distress, well-nourished - EENT Eyes: Present: PERRL, EOM intact - Neck Neck: Present: supple, normal ROM - Respiratory Respiratory effort: normal Respiratory: bilateral: diminished, rales, negative: rhonchi, wheezing - Cardiovascular Rhythm: regular Heart Sounds: Present: S1 & S2 - Extremities Extremities: no ischemia, No edema - Abdominal General gastrointestinal: soft, non-tender, non-distended, normal bowel sounds - Integumentary Integumentary: Present: clear, warm - Psychiatric Psychiatric: appropriate mood/affect, cooperative - Neurologic Neurologic: CNII-XII intact, moves all extremities Results - Labs CBC & Chem 7: 12/09/18 01:26 12/13/18 04:45 Labs: Laboratory Last Values WBC 6.0 K/mm3 (4.5-11.0) 12/09/18 01:26 RBC 4.02 M/mm3 (3.65-5.03) 12/09/18 01:26 Hgb 13.5 gm/dl (11.8-15.2) 12/09/18 01:26 Hct 40.2 % (35.5-45.6) 12/09/18 01:26 MCV 100 fl (84-94) H 12/09/18 01:26 MCH 34 pg (28-32) H 12/09/18 01:26 MCHC 34 % (32-34) 12/09/18 01:26 RDW 13.6 % (13.2-15.2) 12/09/18 01:26 Plt Count 244 K/mm3 (140-440) 12/09/18 01:26 Lymph % (Auto) 48.8 % (13.4-35.0) H 12/09/18 01:26 [place] % (Auto) 4.4 % (0.0-7.3) 12/09/18:26 Eos % (Auto) 2.8 % (0.0-4.3) 12/09/18 01:26 Baso % (Auto) 0.8 % (0.0-1.8) 12/09/18 01:26 Lymph # 2.9 K/mm3 (1.2-5.4) 12/09/18 01:26 [place] # 0.3 K/mm3 (0.0-0.8) 12/09/18 01:26 Eos # 0.2 K/mm3 (0.0-0.4) 12/09/18 01:26 Baso # 0.0 K/mm3 (0.0-0.1) 12/09/18 01:26 Seg Neutrophils % 43.2 % (40.0-70.0) 12/09/18 01:26 Seg Neutrophils # 2.6 K/mm3 (1.8-7.7) 12/09/18 01:26 PT 13.4 Sec. (12.2-14.9) 12/13/18 04:45 INR 1.05 (0.87-1.13) 12/13/18 04:45 APTT 29.3 Sec. (24.2-36.6) 12/09/18 06:41 496.23 ng/mlDDU (0-234) H 12/09/18 06:41 Sodium 140 mmol/L (137-145) 12/13/18 04:45 Potassium 4.3 mmol/L (3.6-5.0) 12/13/18 04:45 Chloride 102.4 mmol/L (98-107) 12/13/18 04:45 Carbon Dioxide 24 mmol/L (22-30) 12/13/18 04:45 18 mmol/L 12/13/18 04:45 BUN 14 mg/dL (9-20) 12/13/18 04:45 0.9 mg/dL (0.8-1.5) 12/13/18 04:45 Estimated GFR > 60 ml/min 12/13/18 04:45 16 % 12/13/18 04:45 Glucose 100 mg/dL (75-100) 12/13/18 04:45 Calcium 9.2 mg/dL (8.4-10.2) 12/13/18 04:45 Magnesium 2.00 mg/dL (1.7-2.3) 12/12/18 05:16 1.10 mg/dL (0.1-1.2) 12/09/18 06:41 0.3 mg/dL (0-0.2) H 12/09/18 06:41 0.8 mg/dL 12/09/18 06:41 AST 55 units/L (5-40) H 12/09/18 06:41 ALT 34 units/L (7-56) 12/09/18 06:41 90 units/L (35-129) 12/09/18 06:41 119 units/L (55-170) 12/09/18 06:41 CK-MB (CK-2) 1.3 ng/mL (0.0-4.0) 12/09/18 06:41 CK-MB (CK-2) Rel Index 1.0 (0-4) 12/09/18 06:41 < 0.010 ng/mL (0.00-0.029) 12/09/18 06:41 NT-Pro-B Natriuret Pep 1973 pg/mL (0-450) H 12/09/18 06:41 6.2 g/dL (6.3-8.2) L 12/09/18 06:41 3.5 g/dL (3.9-5) L 12/09/18 06:41 1.3 % 12/09/18 06:41 Straw (Yellow) 12/09/18 06:57 Clear (Clear) 12/09/18 06:57 6.0 (5.0-7.0) 12/09/18 06:57 Ur Specific [place] 1.009 (1.003-1.030) 12/09/18 06:57 <15 mg/dl mg/dL (Negative) 12/09/18 06:57 Neg mg/dL (Negative) 12/09/18 06:57 Neg mg/dL (Negative) 12/09/18 06:57 Neg (Negative) 12/09/18 06:57 Neg (Negative) 12/09/18 06:57 Neg (Negative) 12/09/18 06:57 < 2.0 mg/dL (<2.0) 12/09/18 06:57 Ur Leukocyte Esterase Neg (Negative) 12/09/18 06:57 < 1.0 /HPF (0.0-6.0) 12/09/18 06:57 1.0 /HPF (0.0-6.0) 12/09/18 06:57 U Epithel Cells (Auto) < 1.0 /HPF (0-13.0) 12/09/18 06:57 Presumptive negative 12/09/18 06:57 Presumptive negative 12/09/18 06:57 Ur Barbiturates Screen Presumptive negative 12/09/18 06:57 Ur Phencyclidine Scrn Presumptive negative 12/09/18 06:57 Ur Amphetamines Screen Presumptive negative 12/09/18 06:57 U Benzodiazepines Scrn Presumptive negative 12/09/18 06:57 Presumptive negative 12/09/18 06:57 U Marijuana (THC) Screen Presumptive positive 12/09/18 06:57 Disclamer 12/09/18 06:57 HIV 1&2 Antibody Rapid Non react (Non React) 12/13/18 10:23 Non react (Non React) 12/13/18 10:23 Active Medications - Current Medications Current Medications: Generic Name Dose Route Start Last Admin Trade Name Freq PRN Reason Stop Dose Admin Acetaminophen 650 mg 12/09/18 15:50 Tylenol PO Q4H PRN Pain MILD(1-3)/Fever >100.5/ALEXANDER Albuterol/Ipratropium 1 ampul 12/09/18 20:00 12/13/18 14:10 Duoneb *Not For Prn Use* IH 1 ampul Q6HRT ALLA Administration Aspirin 81 mg 12/11/18 14:00 12/13/18 10:47 Halfprin Ec PO 81 mg QDAY ALLA Administration Carvedilol 3.125 mg 12/11/18 14:00 12/13/18 10:47 Coreg PO 3.125 mg BID ALLA Administration Docusate Sodium 100 mg 12/09/18 22:00 12/13/18 10:47 Colace PO 100 mg BID ALLA Administration Enoxaparin Sodium 40 mg 12/09/18 22:00 12/12/18 21:35 Lovenox SUB-Q 40 mg QDAY@2200 ALLA Administration Famotidine 10 mg 12/09/18 22:00 12/13/18 10:47 Pepcid PO 10 mg BID ALLA Administration Furosemide 40 mg 12/11/18 10:00 12/13/18 10:47 Lasix IV 40 mg DAILY ALLA Administration Sodium Chloride 500 mls @ 50 mls/hr 12/13/18 07:00 Nacl 0.9% 500 Ml IV DIRECT ALLA Lisinopril 2.5 mg 12/11/18 14:00 12/13/18 10:48 Zestril PO 2.5 mg QDAY ALLA Administration Ondansetron HCl 4 mg 12/09/18 15:50 Zofran IV Q8H PRN N/V unrelieved by Grisel Oxycodone/Acetaminophen 1 tab 12/09/18 15:50 12/13/18 06:48 Percocet 5/325 PO 1 tab Q6H PRN Administration Pain, Moderate (4-6) Potassium Chloride 20 meq 12/11/18 10:00 12/13/18 10:47 K-Dur PO 20 meq QDAY ALLA Administration Spironolactone 25 mg 12/12/18 10:00 12/13/18 10:47 Aldactone PO 25 mg QDAY ALLA Administration
[2018-12-13] MEDS: LOVENOX SUB-Q SCH (21:54)
[2018-12-13] MEDS: HABITROL TD SCH (23:20)
[2018-12-14] MEDS: DUONEB *Not for PRN Use IH SCH ×4 (01:01→20:15)
[2018-12-14] MEDS: PERCOCET 5/325 PO PRN (03:15)
[2018-12-14 05:27] LABS: INR 1.02 (0.87-1.13)
[2018-12-14] MEDS ORDERED: NACL 0.9% 500 ML 500 ML ONE ×2 (08:30→09:50)
[2018-12-14] MEDS ORDERED: ECOTRIN PO ONE (08:31)
[2018-12-14] MEDS: HALFPRIN EC PO SCH (08:36)
[2018-12-14] MEDS ORDERED: HALFPRIN EC PO ONE (08:38)
[2018-12-14] MEDS ORDERED: VERSED ONE (09:49)
[2018-12-14] MEDS ORDERED: CALAN ONE (09:49)
[2018-12-14] MEDS ORDERED: HEPARIN 10,000 UNITS/10 ML ONE (09:49)
[2018-12-14] MEDS ORDERED: HEPARIN/NS 5000 UNIT/500ML(CATH LAB) 1,000 ML IR ONE (09:49)
[2018-12-14] MEDS ORDERED: NITROGLYCERIN SYRINGE 3 ML ONE (09:50)
[2018-12-14] MEDS: SUBLIMAZE ONE ×2 (10:23→10:29)
[2018-12-14] MEDS: XYLOCAINE 2% INFILTRATI ONE ×2 (10:24→10:27)
[2018-12-14] MEDS: ALDACTONE PO SCH (12:22)
[2018-12-14] MEDS: COREG PO SCH ×2 (12:23→21:58)
[2018-12-14] MEDS: ZESTRIL PO SCH (12:23)
[2018-12-14] MEDS: LASIX IV SCH (12:23)
[2018-12-14] MEDS: COLACE PO SCH ×2 (12:54→22:02)
[2018-12-14] MEDS: PEPCID PO SCH ×2 (12:54→22:02)
[2018-12-14] MEDS: K-DUR PO SCH (12:54)
--- NOTE | 2018-12-14 16:39 | Progress Note ---
Assessment and Plan Assessment and plan: --s/p Heart cath today : non obst coronaries continue current cardiac medications, cardiology following continue diuresis --New onset congestive heart failure;systolic dysfunction Ejection fraction 15%, continue diuretics, beta blockers, jamar inhibitors, spironolactone Input and output monitoring, fluid restriction, daily weights, low sodium diet Ischemia workup to rule out ischemic cardiomyopathy. --cardiology recommended pulm consult to evaluate for atypical pneumonia, chest x-ray 2 views tomorrow, follow-up pulmonary evaluation and recommendations --Severe dilated cardiomyopathy;per ECHO EF 15% Continue anti-failure medications --Hypokalemia; replenish, follow levels Check magnesium --Substance abuse; marijuana Advised to quit recreational drug use --Chronic alcohol use; patient advised to quit alcohol intake --Ongoing tobacco use; smoking cessation advised Nicotine patch as needed --DVT prophylaxis, Lovenox Possible discharge in 1-2 days if stable History Interval history: Had heart cath today Nonobstructive coronary arteries Cardiology recommend 48-hour self diuretic use Patient feels better no new complaints Vital signs noted Hospitalist Physical - Constitutional Vitals: Temp Pulse Resp BP Pulse Ox 98.2 F 96 H 18 98/71 97 12/14/18 04:17 12/14/18 14:28 12/14/18 14:28 12/14/18 14:00 12/14/18 10:08 General appearance: Present: no acute distress, well-nourished - EENT Eyes: Present: PERRL, EOM intact - Neck Neck: Present: supple, normal ROM - Respiratory Respiratory effort: normal Respiratory: bilateral: diminished, negative: rales, rhonchi, wheezing - Cardiovascular Rhythm: regular Heart Sounds: Present: S1 & S2 - Extremities Extremities: no ischemia, No edema - Abdominal General gastrointestinal: soft, non-tender, non-distended, normal bowel sounds - Integumentary Integumentary: Present: clear, warm - Psychiatric Psychiatric: appropriate mood/affect, cooperative - Neurologic Neurologic: CNII-XII intact, moves all extremities Results - Labs CBC & Chem 7: 12/09/18 01:26 12/13/18 04:45 Labs: Laboratory Last Values WBC 6.0 K/mm3 (4.5-11.0) 12/09/18 01:26 RBC 4.02 M/mm3 (3.65-5.03) 12/09/18 01:26 Hgb 13.5 gm/dl (11.8-15.2) 12/09/18 01:26 Hct 40.2 % (35.5-45.6) 12/09/18 01:26 MCV 100 fl (84-94) H 12/09/18 01:26 MCH 34 pg (28-32) H 12/09/18 01:26 MCHC 34 % (32-34) 12/09/18 01:26 RDW 13.6 % (13.2-15.2) 12/09/18 01:26 Plt Count 244 K/mm3 (140-440) 12/09/18 01:26 Lymph % (Auto) 48.8 % (13.4-35.0) H 12/09/18:26 [place] % (Auto) 4.4 % (0.0-7.3) 12/09/18:26 Eos % (Auto) 2.8 % (0.0-4.3) 12/09/18 01:26 Baso % (Auto) 0.8 % (0.0-1.8) 12/09/18 01:26 Lymph # 2.9 K/mm3 (1.2-5.4) 12/09/18 01:26 [place] # 0.3 K/mm3 (0.0-0.8) 12/09/18 01:26 Eos # 0.2 K/mm3 (0.0-0.4) 12/09/18 01:26 Baso # 0.0 K/mm3 (0.0-0.1) 12/09/18 01:26 Seg Neutrophils % 43.2 % (40.0-70.0) 12/09/18 01:26 Seg Neutrophils # 2.6 K/mm3 (1.8-7.7) 12/09/18 01:26 PT 13.1 Sec. (12.2-14.9) 12/14/18 04:42 INR 1.02 (0.87-1.13) 12/14/18 04:42 APTT 29.3 Sec. (24.2-36.6) 12/09/18 06:41 496.23 ng/mlDDU (0-234) H 12/09/18 06:41 Sodium 140 mmol/L (137-145) 12/13/18 04:45 Potassium 4.3 mmol/L (3.6-5.0) 12/13/18 04:45 Chloride 102.4 mmol/L (98-107) 12/13/18 04:45 Carbon Dioxide 24 mmol/L (22-30) 12/13/18 04:45 18 mmol/L 12/13/18 04:45 BUN 14 mg/dL (9-20) 12/13/18 04:45 0.9 mg/dL (0.8-1.5) 12/13/18 04:45 Estimated GFR > 60 ml/min 12/13/18 04:45 16 % 12/13/18 04:45 Glucose 100 mg/dL (75-100) 12/13/18 04:45 Calcium 9.2 mg/dL (8.4-10.2) 12/13/18 04:45 Magnesium 2.00 mg/dL (1.7-2.3) 12/12/18 05:16 1.10 mg/dL (0.1-1.2) 12/09/18 06:41 0.3 mg/dL (0-0.2) H 12/09/18 06:41 0.8 mg/dL 12/09/18 06:41 AST 55 units/L (5-40) H 12/09/18 06:41 ALT 34 units/L (7-56) 12/09/18 06:41 90 units/L (35-129) 12/09/18 06:41 119 units/L (55-170) 12/09/18 06:41 CK-MB (CK-2) 1.3 ng/mL (0.0-4.0) 12/09/18 06:41 CK-MB (CK-2) Rel Index 1.0 (0-4) 12/09/18 06:41 < 0.010 ng/mL (0.00-0.029) 12/09/18 06:41 NT-Pro-B Natriuret Pep 1973 pg/mL (0-450) H 12/09/18 06:41 6.2 g/dL (6.3-8.2) L 12/09/18 06:41 3.5 g/dL (3.9-5) L 12/09/18 06:41 1.3 % 12/09/18 06:41 Straw (Yellow) 12/09/18 06:57 Clear (Clear) 12/09/18 06:57 6.0 (5.0-7.0) 12/09/18 06:57 Ur Specific [place] 1.009 (1.003-1.030) 12/09/18 06:57 <15 mg/dl mg/dL (Negative) 12/09/18 06:57 Neg mg/dL (Negative) 12/09/18 06:57 Neg mg/dL (Negative) 12/09/18 06:57 Neg (Negative) 12/09/18 06:57 Neg (Negative) 12/09/18 06:57 Neg (Negative) 12/09/18 06:57 < 2.0 mg/dL (<2.0) 12/09/18 06:57 Ur Leukocyte Esterase Neg (Negative) 12/09/18 06:57 < 1.0 /HPF (0.0-6.0) 12/09/18 06:57 1.0 /HPF (0.0-6.0) 12/09/18 06:57 U Epithel Cells (Auto) < 1.0 /HPF (0-13.0) 12/09/18 06:57 Presumptive negative 12/09/18 06:57 Presumptive negative 12/09/18 06:57 Ur Barbiturates Screen Presumptive negative 12/09/18 06:57 Ur Phencyclidine Scrn Presumptive negative 12/09/18 06:57 Ur Amphetamines Screen Presumptive negative 12/09/18 06:57 U Benzodiazepines Scrn Presumptive negative 12/09/18 06:57 Presumptive negative 12/09/18 06:57 U Marijuana (THC) Screen Presumptive positive 12/09/18 06:57 Disclamer 12/09/18 06:57 HIV 1&2 Antibody Rapid Non react (Non React) 12/13/18 10:23 Non react (Non React) 12/13/18 10:23 Active Medications - Current Medications Current Medications: Generic Name Dose Route Start Last Admin Trade Name Freq PRN Reason Stop Dose Admin Acetaminophen 650 mg 12/09/18 15:50 Tylenol PO Q4H PRN Pain MILD(1-3)/Fever >100.5/[place]EXANDER Albuterol/Ipratropium 1 ampul 12/09/18 20:00 12/14/18 14:28 Duoneb *Not For Prn Use* IH 1 ampul Q6HRT ALLA Administration Aspirin 81 mg 12/11/18 14:00 12/14/18 08:36 Halfprin Ec PO 81 mg QDAY ALLA Administration Carvedilol 3.125 mg 12/11/18 14:00 12/14/18 12:23 Coreg PO Not Given BID ALLA Docusate Sodium 100 mg 12/09/18 22:00 12/14/18 12:54 Colace PO 100 mg BID ALLA Administration Enoxaparin Sodium 40 mg 12/09/18 22:00 12/13/18 21:54 Lovenox SUB-Q 40 mg QDAY@2200 ALLA Administration Famotidine 10 mg 12/09/18 22:00 12/14/18 12:54 Pepcid PO 10 mg BID ALLA Administration Furosemide 40 mg 12/11/18 10:00 12/14/18 12:23 Lasix IV Not Given DAILY [facility] Sodium Chloride 500 mls @ 50 mls/hr 12/13/18 07:00 Nacl 0.9% 500 Ml IV DIRECT [facility] Lisinopril 2.5 mg 12/11/18 14:00 12/14/18 12:23 Zestril PO Not Given QDAY [facility] Nicotine 14 mg 12/13/18 23:00 12/13/18 23:20 Habitrol TD 14 mg QDAY@2200 ALLA Administration Ondansetron HCl 4 mg 12/09/18 15:50 Zofran IV Q8H PRN N/V unrelieved by Reglan Oxycodone/Acetaminophen 1 tab 12/09/18 15:50 12/14/18 03:15 Percocet 5/325 PO 1 tab Q6H PRN Administration Pain, Moderate (4-6) Potassium Chloride 20 meq 12/11/18 10:00 12/14/18 12:54 K-Dur PO 20 meq QDAY [facility] Administration Spironolactone 25 mg 12/12/18 10:00 12/14/18 12:22 Aldactone PO Not Given QDAY [facility] Nutrition/Malnutrition Assess - Dietary Evaluation Nutrition/Malnutrition Findings: Nutrition Notes Start: 12/14/18 09:03 Freq: Status: Active Protocol: Document 12/14/18 09:03 LP (Rec: 12/14/18 09:04 LP [id number]) Nutrition Notes Need for Assessment generated from: LOS Initial or Follow up Brief Note Subjective/Other Information Screen for LOS. Pt eating 75% of meals. Nutrition Intervention Revisit per MD consult or patient Sign Off request:
--- NOTE | 2018-12-14 17:17 | Cardiac Catherization Report ---
LEFT AND RIGHT HEART CATH ORDERING PHYSICIAN: Dr. Aleksander Hernandez. INDICATIONS: Dilated cardiomyopathy. PROCEDURES PERFORMED: 1. Selective left and right coronary angiography. 2. Left ventriculography. 3. Right heart catheterization with hemodynamic measurement and oxygen saturation run. DESCRIPTION: After obtaining written consent, the patient was draped using sterile technique. A 2% lidocaine was injected into the right wrist. A 6-[place] vascular sheath was inserted into the right radial artery. A 6-[place] JL3.5 catheter was used to selectively engage left coronary artery. A 6-[place] JR4 catheter was used to selectively engage right coronary artery. A 6-[place] JR4 catheter was used to hand inject the left ventriculogram. A 2% lidocaine was injected into the right groin. A 7-[place] vascular sheath was inserted into the right femoral vein. A 7-[place] catheter was used to measure right-sided hemodynamics and perform an oxygen saturation run. Hemostasis was achieved at the end of the procedure using manual pressure. SPECIMEN REMOVED: None. ESTIMATED BLOOD LOSS: Minimal. TOTAL SEDATION ADMINISTERED: 1 mg of IV Versed and 100 mcg of IV fentanyl. Physician/patient [id number] sedation start time 10:21 a.m. Physician/patient [id number] sedation stop time 10:40 a.m. Total sedation time is 19 minutes. FINDINGS: HEMODYNAMICS: 1. Aortic pressure was 94/65. LV systolic pressure 94 mmHg. LV end-diastolic pressure 30 mmHg. 2. Mean right atrial pressure 11 mmHg. 3. Right ventricular systolic pressure of 47 mmHg. Right ventricular end-diastolic pressure 9 mmHg. 4. PA systolic pressure 45 mmHg. PA diastolic pressure 24 mmHg. Mean PA pressure 34 mmHg. 5. Mean pulmonary capillary wedge pressure 28 mmHg. 6. [place] cardiac output 4.68 liters per minute. 7. [place] cardiac index 2.41 liters per minute per meter square. 8. Aortic saturation 93%. 9. Right atrial saturation 63%. 10. PA saturation 61%. 11. RV saturation 62%. CARDIAC STRUCTURES: 1. The left ventricular cavity is severely dilated and hypokinetic with an ejection fraction estimated at 10%. CORONARY ANATOMY: 1. This is a right dominant circulation. 2. The left main is angiographically normal. 3. The LAD is mildly ectatic with mild luminal irregularities. 4. The left circumflex artery is mildly ectatic with mild luminal irregularities. 5. The right coronary artery is mildly ectatic with mild luminal irregularities. IMPRESSION: 1. Mild nonobstructive coronary artery disease. 2. Severely dilated and hypokinetic left ventricle with an ejection fraction estimated at 10%. 3. Elevated right-sided and left-sided filling pressure with a mean pulmonary capillary wedge pressure of 30 mmHg, mean right arterial pressure of 11 mmHg. 4. Preserved cardiac index of 2.41 liters per minute per meter square. 5. No evidence of an intracardiac shunt. RECOMMENDATIONS: Continue medical therapy for nonischemic cardiomyopathy and chronic systolic heart failure. [facility]# [id number] MAGDALENE/CHAYA
[2018-12-14] MEDS: HABITROL TD SCH (22:00)
[2018-12-14] MEDS: LOVENOX SUB-Q SCH (22:02)
[2018-12-15] MEDS ORDERED: DUONEB *Not for PRN Use IH SCH (08:00)
[2018-12-15 09:02] VITALS: BP 100/72
--- NOTE | 2018-12-15 10:50 | Discharge Summary ---
Providers - Providers Date of Admission: 12/09/18 12:29 Date of discharge: 12/15/18 Attending physician: VALERIA FRASER 12/10/18 14:40 Consult to Physician [CONS] Routine Comment: Consulting Provider: DAIJA FRY Physician Instructions: Reason For Exam: possible CHF Primary care physician: [facility], MD Hospitalization Reason for admission: Worsening shortness of breath/orthopnea/onset systolic congestive heart marley Condition: Stable Pertinent studies: Chest x-ray; cardiomegaly vascular congestion CT chest; no evidence of PE cardiomegaly small pericardial effusion and mild vascular congestion, case loading the right pleural effusion, CHF Heart cath; mild nonobstructive coronary artery disease, severely dilated cardiomyopathy EF 10%percent Echocardiogram; severely dilated left ventricle EF 15%, moderate mitral, tricuspid regurgitation Hospital course: 38-year-old male without any major past medical history was admitted through emergency room with complaints of shortness of breathof 1 month patient. Patient has significant history of alcohol and tobacco , patient was complaining orthopnea , and worsening effort tolerance ., Initial workup consistent with elevated BNP , and congested lungs on chest x-ray Patient was symptomatically managed, echocardiogram consistent with new-onset acute systolic congestive heart failure with ejection fraction of 15% Evaluated by cardiology, had heart cath and dilated cardiomyopathy, managed with anti-inflammatory medication Advised to quit alcohol and tobacco use, Today patient is comfortable in no new complaints Vital signs stable, blood pressures in the normal range, Physical examination [facility] is unremarkable Manager Financial Reporting cleared for discharge and follow-up in the office Patient is hemodynamically and clinically stable at discharge Anti-failure medications were given at dialysis as patient's blood pressures are in the lower range Patient is stable at discharge Discharge diagnosis; And management --Nonischemic cardiomyopathy: s/p cath ,normal coronaries --New onset acute systolic congestive heart failure Ejection fraction 15%, continue diuretics, beta blockers, amber inhibitors, spironolactone Input and output monitoring, fluid restriction, daily weights, low sodium diet --Pulmonary evaluated for possible overlapping atypical pneumonia, chest x-ray 2 views no evidence of pneumonia, pulmonary evaluated, no pneumonia --Severe dilated cardiomyopathy;per ECHO EF 15% Continue anti-failure medications --Hypokalemia; replenish, follow levels Check magnesium --Substance abuse; marijuana Advised to quit recreational drug use --Ongoing tobacco use; smoking cessation advised Nicotine patch as needed --DVT prophylaxis, Lovenox Closely monitor the patient and adjust management as needed Consults Recommendations noted and appreciated Disposition: DC-01 TO HOME OR SELFCARE Time spent for discharge: 32 min Core Measure Documentation - Palliative Care Palliative Care/ Comfort Measures: Not Applicable - Core Measures Any of the following diagnoses?: heart failure - Heart Failure Discharge Requirements AMBER/ARB for LVSD if EF <40%: Yes Beta vish at discharge: Yes Exam - Constitutional Vitals: Temp Pulse Resp BP Pulse Ox 97.6 F 95 H 18 100/72 100 12/15/18 08:16 12/15/18 04:00 12/15/18 08:16 12/15/18 08:16 12/15/18 04:00 General appearance: Present: no acute distress, well-nourished - EENT Eyes: Present: PERRL, EOM intact - Neck Neck: Present: supple, normal ROM - Respiratory Respiratory effort: normal Respiratory: negative: diminished, rales, rhonchi, wheezing - Cardiovascular Rhythm: regular Heart Sounds: Present: S1 & S2 - Extremities Extremities: no ischemia, No edema - Abdominal General gastrointestinal: Present: soft, non-tender, non-distended, normal bowel sounds - Integumentary Integumentary: Present: clear, warm - Musculoskeletal Musculoskeletal: strength equal bilaterally - Psychiatric Psychiatric: appropriate mood/affect, cooperative - Neurologic Neurologic: CNII-XII intact, moves all extremities Plan Activity: advance as tolerated Diet: low salt Special Instructions: smoking cessation Additional Instructions: Advised to quit alcohol intake. Advised smoking cessation, nicotine patch as needed. Restrict fluids to less than 1200 mL in 24 hours. Low-sodium diet. Advised to comply with medications and diet and follow-up visits Follow up with: CHAYO GARCIA MD [Staff Physician] - 7 Days CATAWBA MIKO ROACH MD [Primary Care Provider] - 3-5 Days Forms: CardCath PCI D/C Instructions Prescriptions: Spironolactone [Aldactone] 12.5 mg PO QDAY #30 tablet Aspirin EC 81 mg PO QDAY #30 tablet Carvedilol [Coreg] 3.125 mg PO BID #60 tablet Nicotine [Habitrol] 14 mg TD QDAY@2200 #30 patch Furosemide [Lasix TAB] 40 mg PO QDAY #30 tablet Lisinopril [Zestril TAB] 2.5 mg PO QDAY #30 tab
--- NOTE | 2018-12-15 11:16 | Progress Note ---
Assessment and Plan Non-ischemic cardiomyopathy, LVEF 10% Acute systolic heart failure with elevated filling pressures yet preserved CI Alcohol abuse Recommendations: GDMT with BB, AMBER, and MRA antagonist Change diuretics to po Alcohol abstinence May go home Cardiology will sign off Subjective Date of service: 12/15/18 Principal diagnosis: CHF Interval history: Patient is doing well He denies chest pain or shortness of breath He is able to walk down the hallway with no distress Objective Vital Signs Temp Pulse Pulse Resp Resp BP BP 12/15/18 10:49 69 12/15/18 08:16 97.6 F 18 100/72 12/15/18 04:54 98.8 F 16 110/78 12/15/18 04:00 98.0 F 95 H 16 110/78 12/15/18 01:16 93/58 12/14/18 23:43 98.5 F 16 77/51 12/14/18 23:00 98 F 98 H 16 77/51 12/14/18 20:19 12/14/18 20:18 101 H 20 12/14/18 20:00 100 H 12/14/18 19:29 97.7 F 16 96/74 12/14/18 19:00 108 H 12/14/18 14:38 98 H 18 12/14/18 14:28 96 H 18 12/14/18 14:00 98/71 12/14/18 13:00 103/78 12/14/18 12:51 100/74 12/14/18 12:45 95/68 12/14/18 12:30 96/71 12/14/18 12:22 98/67 12/14/18 12:15 107/74 12/14/18 12:00 98/71 12/14/18 11:45 119/60 12/14/18 11:30 100 H 101/76 12/14/18 11:15 106/86 Pulse Ox 12/15/18 10:49 12/15/18 08:16 12/15/18 04:54 12/15/18 04:00 100 12/15/18 01:16 12/14/18 23:43 12/14/18 23:00 95 12/14/18 20:19 99 12/14/18 20:18 12/14/18 20:00 12/14/18 19:29 12/14/18 19:00 98 12/14/18 14:38 12/14/18 14:28 12/14/18 14:00 12/14/18 13:00 12/14/18 12:51 12/14/18 12:45 12/14/18 12:30 12/14/18 12:22 12/14/18 12:15 12/14/18 12:00 12/14/18 11:45 12/14/18 11:30 12/14/18 11:15 - Physical Examination General: No Apparent Distress HEENT: Positive: PERRL Neck: Positive: trachea midline Cardiac: Positive: Reg Rate and Rhythm Lungs: Positive: Normal Exam Neuro: Positive: Grossly Intact Extremities: Absent: edema
== END 2018-12-15 13:40 | disposition home or self-care (01) | DRG 287 ==
LOC: ED 00:52 → 4A 12:29
PROVIDERS: ADMIT Internal Medicine; ATTEND Internal Medicine
PROC: 4A023N8 Measurement of Cardiac Sampling and Pressure, Bilateral, Percutaneous Approach (ICD-10-PCS; principal; 2018-12-14)
PROC: B2111ZZ Fluoroscopy of Multiple Coronary Arteries using Low Osmolar Contrast (ICD-10-PCS; 2018-12-14)
PROC: B2151ZZ Fluoroscopy of Left Heart using Low Osmolar Contrast (ICD-10-PCS; 2018-12-14)
DX: I50.21 Acute systolic (congestive) heart failure (principal); I42.0 Dilated cardiomyopathy; F17.210 Nicotine dependence, cigarettes, uncomplicated; F12.10 Cannabis abuse, uncomplicated; E87.6 Hypokalemia; I25.10 Atherosclerotic heart disease of native coronary artery without angina pectoris
CPT/HCPCS: 36415; 71046; 71275; 80048; 80076; 80307; 81001; 82550; 82553; 83735; 83880; 84132; 84484; 85025; 85379; 85610; 85730; 87806; 93005; 93010; 93306; 93460; 94640; 99406; G0378; C1894; J1644; J1650; J1940; J2250; J3010; J3480; J7040; Q9967